=== PATIENT | male | born 1945 | race Caucasian/White ===

== ENCOUNTER 2023-03-04 13:38 | Outpatient (CLI) | payer MEDICARE, SELFPAY ==
--- NOTE | ~2023-03-04 | US_ITS ---
EXAMINATION: US arterial ankle brachial ind DATE: 03/04/2023 INDICATION: Peripheral vascular disease with claudication. Polyneuropathy. TECHNIQUE: Segmental pressures and plethysmographic and Doppler waveforms of the brachial and lower e xtremity arteries were obtained. COMPARISON: None. FINDINGS: Right and left brachial artery pressures of 99 mm Hg and 96 mm Hg, respectively, are concordant (norm al difference <= 30 mmHg). The right ankle-brachial index (JANELLE) is 1.37 (normal >= 0.9-1.0). The right great toe-brachial index (TBI) is 0.65 (normal >= 0.65). Arterial Doppler waveforms are biphasic with brisk systolic upstrokes at both right posterior tibial and dorsalis pedis arteries. The left JANELLE is 1.35. The left TBI is 0.63. Arterial Doppler waveforms are biphasic with brisk systol ic upstrokes at both left posterior tibial and dorsalis pedis arteries. IMPRESSION: 1. Arterial occlusive disease to bilateral lower limbs with borderline right TBI and mildly decreased left TBI Reviewed, dictated and finalized at location A. [facility] IMPRESSION: 1. Arterial occlusive disease to bilateral lower limbs with borderline right TB I and mildly decreased left TBI
== END 2023-03-04 13:39 | disposition home or self-care (01) ==
PROVIDERS: PCP Physician Assistant Medical; Visit Provider Physician Assistant Medical
DX: R09.89 Other specified symptoms and signs involving the circulatory and respiratory systems (principal); I10 Essential (primary) hypertension; E78.5 Hyperlipidemia, unspecified; E55.9 Vitamin D deficiency, unspecified; E53.8 Deficiency of other specified B group vitamins; G62.9 Polyneuropathy, unspecified; I73.9 Peripheral vascular disease, unspecified
CPT/HCPCS: 93922

== ENCOUNTER 2023-03-29 09:14 | Day surgery (SDC) | payer MEDICARE, SELFPAY ==
[2023-02-10 11:04] VITALS: BMI 28.8
[2023-03-16 10:38] VITALS: BMI 28.0
[2023-03-29 10:05] VITALS: BP 141/63; PULSE 77; RESP 16; TEMP 36.9; O2SAT 97
[2023-03-29] MEDS: LACTATED RINGERS 1,000 ML 150 ML IV CONT (10:14)
--- NOTE | 2023-03-29 10:24 | WPDANESEPPF ---
Anes - Initial Pre Proc Eval Procedure: Operation Date: 03/29/23 11:30 Proposed Procedures p Screening Colonoscopy - Jay Matthew MD Date/Time: 03/29/23 10:24 Surgeon: Jay Matthew MD Pre Op Diagnosis: Neoplasm Screening Patient Data Age: 77 Gender: M Height: 1.78 m Weight: 90.6 kg Last Vital Signs Temp 36.9 C 03/29/23 10:05 Pulse 77 03/29/23 10:05 Resp 16 03/29/23 10:05 BP 141/63 H 03/29/23 10:05 Pulse Ox 97 03/29/23 10:05 O2 Del Method Room Air 03/29/23 10:05 Allergies Allergy/AdvReac Type Severity Reaction Status Date / Time No Known Allergies Allergy Verified 03/29/23 10:04 Home Medications Medication Instructions Recorded Confirmed Type aspirin 81 mg tablet,delayed 81 mg PO DAILY 09/22/19 03/29/23 History release cholecalciferol (vitamin D3) 25 25 mcg PO DAILY 05/01/22 03/29/23 History mcg (1,000 unit) capsule cyanocobalamin (vitamin B-12) See Rx Instructions PO DAILY 05/01/22 03/29/23 History 1,000 mcg tablet pregabalin 100 mg capsule (Lyrica) 100 mg PO TID #270 caps 12/17/22 03/29/23 Rx celecoxib 200 mg capsule (Celebrex) 200 mg PO DAILY #90 caps 01/28/23 03/29/23 Rx allopurinol 300 mg tablet See Rx Instructions .Route 02/18/23 03/29/23 Rx .COMPLEX #90 tabs amlodipine 10 mg tablet See Rx Instructions .Route 03/05/23 03/29/23 Rx .COMPLEX #90 tabs atorvastatin 40 mg tablet 40 mg PO QHS #90 tabs 03/05/23 03/29/23 Rx lisinopril 20 See Rx Instructions .Route 03/05/23 03/29/23 Rx mg-hydrochlorothiazide 25 mg tablet .COMPLEX #90 tabs metoprolol succinate 100 mg See Rx Instructions .Route 03/05/23 03/29/23 Rx tablet,extended release 24 hr .COMPLEX #90 tabs Patient hx anesthesia problems: none Family hx anesthesia problems: none Results Review: All pre-operative results and documents have been reviewed as part of the pre-operative evaluation. [facility] Past Medical History Medical History Difficulty balancing Gall bladder disease Osteoarthritis of right knee Peripheral neuropathy Hands bilateral Vitamin B12 deficiency Vitamin D deficiency Surgical History Surgical History H/O cataract extraction H/O hernia repair History of hip replacement History of knee replacement Family History Family History Mother Hypertension Social History Social History Smoking status: Never smoker Alcohol intake: current Alcohol use details: rarely Substance use: never Lack of Transportation: No Lack of Food: Never True Current Housing: I Have Housing Concerned About Future Housing: No Difficulty Paying Gas/Electric Bills: No Difficulty Paying for Meds: No Currently Unemployed: No Education: Associate Degree Difficulty w/ Childcare or Family Care: No Living arrangements: with family Occupation/Education: retired Gender identity (if verbalized by the patient): Male Spiritual care concerns: No Agree to blood products: Yes Anes - Eval Final PreProcedure Day of Procedure 03/29/23 10:24 Patient weight: overweight Heart: regular rate and rhythm Lungs: clear to auscultation Airway: Mallampati scale class II Neurological: alert and oriented Last oral intake: >/= 8 hours ASA classification: III Emergent: no Anesthetic plan: proceed Anesthesia type and monitoring: general GIVS and standard monitoring Results Review: All pre-operative results and documents have been reviewed as part of the pre-operative evaluation. Informed Consent: The patient's anesthetic plan and its attendant risks and benefits were discussed with the patient/family/POA. Questions were solicited and answers provided to the satisfaction of the patient/family/POA.
--- NOTE | 2023-03-29 10:34 | PM.HPGS ---
History of Present Illness History of Present Illness Consent: Risks, benefits, and alternatives have been discussed and questions answered. Patient agrees to proceed with procedure. Chief complaint: Neoplasm Screening Narrative: hPil Starks is a 77 year old male Presents for screening colonoscopy. Patient current weight appetite and bowel movements are normal. Patient denies abdominal pain. Has had no bleeding. Family history noncontributory. Sh exam 10 years ago was unremarkable. Review of Systems Review of Systems: Review of systems is noncontributory. [facility] Past Medical History Medical History Difficulty balancing Gall bladder disease Osteoarthritis of right knee Peripheral neuropathy Hands bilateral Vitamin B12 deficiency Vitamin D deficiency Surgical History Surgical History H/O cataract extraction H/O hernia repair History of hip replacement History of knee replacement Family History Family History Mother Hypertension Social History Social History Smoking status: Never smoker Alcohol intake: current Alcohol use details: rarely Substance use: never Lack of Transportation: No Lack of Food: Never True Current Housing: I Have Housing Concerned About Future Housing: No Difficulty Paying Gas/Electric Bills: No Difficulty Paying for Meds: No Currently Unemployed: No Education: Associate Degree Difficulty w/ Childcare or Family Care: No Living arrangements: with family Occupation/Education: retired Gender identity (if verbalized by the patient): Male Spiritual care concerns: No Agree to blood products: Yes Meds Home Medications and Allergies Home Medications Medication Instructions Recorded Confirmed Type aspirin 81 mg tablet,delayed 81 mg PO DAILY 09/22/19 03/29/23 History release cholecalciferol (vitamin D3) 25 25 mcg PO DAILY 05/01/22 03/29/23 History mcg (1,000 unit) capsule cyanocobalamin (vitamin B-12) See Rx Instructions PO DAILY 05/01/22 03/29/23 History 1,000 mcg tablet pregabalin 100 mg capsule (Lyrica) 100 mg PO TID #270 caps 12/17/22 03/29/23 Rx celecoxib 200 mg capsule (Celebrex) 200 mg PO DAILY #90 caps 01/28/23 03/29/23 Rx allopurinol 300 mg tablet See Rx Instructions .Route 02/18/23 03/29/23 Rx .COMPLEX #90 tabs amlodipine 10 mg tablet See Rx Instructions .Route 03/05/23 03/29/23 Rx .COMPLEX #90 tabs atorvastatin 40 mg tablet 40 mg PO QHS #90 tabs 03/05/23 03/29/23 Rx lisinopril 20 See Rx Instructions .Route 03/05/23 03/29/23 Rx mg-hydrochlorothiazide 25 mg tablet .COMPLEX #90 tabs metoprolol succinate 100 mg See Rx Instructions .Route 03/05/23 03/29/23 Rx tablet,extended release 24 hr .COMPLEX #90 tabs Allergies Allergy/AdvReac Type Severity Reaction Status Date / Time No Known Allergies Allergy Verified 03/29/23 10:04 Vital Signs Vital Signs - 24 hr 03/29/23 10:05 Temperature 98.4 F Pulse Rate 77 Respiratory Rate 16 Blood Pressure 141/63 H Pulse Oximetry 97 Oxygen Delivery Room Air Exam Narrative: Physical exam reveals patient alert. Vital signs stable. Eight exam is unremarkable. Patient is anicteric. Lungs are clear to auscultation and percussion. Heart is without murmur or extra sounds. Abdomen sounds are present soft nontender with no organomegaly. Digital and External rectal exam normal. Assessment and Plan Assessment and plan (1) Screening for colon cancer: Code(s): Z12.11 - Encounter for screening for malignant neoplasm of colon Status: Acute Assessment and Plan: Patient presents for screening colonoscopy. Further recommendations may be given after endoscopy
[2023-03-29 10:58] VITALS: BP 94/55; PULSE 73; RESP 16; O2SAT 97
--- NOTE | 2023-03-29 11:05 | WPDANESPN ---
Anes - Prog Note Post-Op Date/Time: 03/29/23 11:05 Cardiovascular status: normal Respiratory status: normal Airway patency: baseline Mental status: baseline Post-Op hydration status: normal Vital Signs: Last Vital Signs Temp 36.9 C 03/29/23 10:05 Pulse 73 03/29/23 10:58 Resp 16 03/29/23 10:58 BP 94/55 L 03/29/23 10:58 Pulse Ox 97 03/29/23 10:58 O2 Del Method Room Air 03/29/23 10:58 Pain Score (VAS): 0/10 I/O: Intake & Output 03/28/23 03/29/23 03/29/23 23:59 07:59 15:59 Intake Total 300 Balance 300 Patient Feedback: Patient satisfied with anesthetic care.
[2023-03-29 11:08] VITALS: BP 103/60; PULSE 70; RESP 16; O2SAT 97
[2023-03-29 11:18] VITALS: BP 126/64; PULSE 73; RESP 15; O2SAT 99
== END 2023-03-29 11:35 | disposition home or self-care (01) ==
PROVIDERS: PCP Physician Assistant Medical; Visit Provider Internal Medicine Gastroenterology
PROC: 0DJD8ZZ Inspection of Lower Intestinal Tract, Via Natural or Artificial Opening Endoscopic (ICD-10-PCS; CPT 45378; principal; 2023-03-29 11:30)
DX: Z12.11 Encounter for screening for malignant neoplasm of colon (principal); K57.30 Diverticulosis of large intestine without perforation or abscess without bleeding; K64.8 Other hemorrhoids
CPT/HCPCS: 45378